=== PATIENT | female | born 1945 | race Caucasian/White ===

== ENCOUNTER 2017-06-17 21:12 | Emergency (ER) | payer MEDICARE ==
[~2017-06-17] VITALS: Ht 152.4 cm; Wt 66.8 kg
[~2017-06-17 21:12] MED LIST: ASPI325T17 PO; ESTR0.3T PO; Hydrocodone Bit/Acetaminophen PO; Ibuprofen PO; LEVO25TA4 PO; ONDA4TAB10 PO
[2017-06-17] MEDS ORDERED: OXYcodone/APAP 5/325MG TABLET ONE (21:46)
[2017-06-17] MEDS ORDERED: OXYcodone/APAP 5/325MG TABLET PO ONE (22:00)
[2017-06-17] MEDS ORDERED: OXYcodone IR 5MG TABLET PO ONE (22:00)
[2017-06-17 23:16] VITALS: BP 169/63
== END 2017-06-17 23:34 | disposition home or self-care (01) ==
LOC: ED 23:25
DX: M25.512 Pain in left shoulder (principal); G89.29 Other chronic pain; M41.9 Scoliosis, unspecified; Z87.891 Personal history of nicotine dependence
CPT/HCPCS: 99284

== ENCOUNTER 2018-05-07 19:31 | Inpatient (IN) | payer MEDICARE ==
[~2018-05-07] VITALS: Ht 152.4 cm; Wt 70.6 kg
--- NOTE | 2018-05-07 20:31 | NUR ---
PT. TO ROOM FROM LOBBY; IN BR FOR URINE SAMPLE.
[2018-05-07 20:40] LABS: BASOPHILS # (AUTO) 0.05 x10^3/uL (0-0.1); BASOPHILS % (AUTO) 1 % (0-1); EOSINOPHILS # (AUTO) 0.07 x10^3/uL (0-0.4); EOSINOPHILS % (AUTO) 1 % (1-7); LYMPHOCYTES # (AUTO) 1.67 x10^3/uL (1-3.4); LYMPHOCYTES % (AUTO) 17 % (22-44); MD NO; MEAN CORPUSCULAR HEMOGLOBIN 30.8 pg (27.0-34.8); MEAN CORPUSCULAR HGB CONC 33.7 g/dL (32.4-35.8); MEAN CORPUSCULAR VOLUME 91.3 fL (80-100); MEAN PLATELET VOLUME 6.8 fL (7.4-10.4); MONOCYTES # (AUTO) 0.52 x10^3/uL (0.2-0.8); MONOCYTES % (AUTO) 6 % (2-9); NEUTROPHILS # (AUTO) 7.32 x10^3/uL (1.8-6.8); NEUTROPHILS % (AUTO) 76 % (42-75); PLATELET COUNT 395 x10^3/uL (130-400); RED BLOOD COUNT 4.53 x10^6/uL (3.82-5.3); RED CELL DISTRIBUTION WIDTH 12.6 % (9.6-15.2)
--- NOTE | 2018-05-07 20:42 | NUR ---
URINE COLLECTED AND SENT TO LAB. MARIETTA REN TAKING REPORT AT BS TO ASSUME PT. CARE AT THIS TIME.
--- NOTE | 2018-05-07 20:46 | NUR ---
ct pending lab/creatine
[2018-05-07 20:49] LABS: ALANINE AMINOTRANSFERASE 25 U/L (12-78); ALBUMIN 4.4 g/dL (3.4-5.0); ANION GAP 8 mmol/L (5-15); CALCIUM 9.1 mg/dL (8.5-10.1); CHLORIDE 100 mmol/L (98-107); CREATININE 0.81 mg/dL (0.55-1.02)
[2018-05-07 20:52] LABS: MICROSCOPIC NOT IND
[2018-05-07 20:52] LABS: ALKALINE PHOSPHATASE 112 U/L (45-117); BILIRUBIN,TOTAL 0.3 mg/dL (0.2-1.0); TOTAL PROTEIN 7.9 g/dL (6.4-8.2)
[2018-05-07] MEDS ORDERED: LEVO125T5 PO (20:52)
[2018-05-07] MEDS ORDERED: FELO5TAB PO (20:52)
[2018-05-07] MEDS ORDERED: OXYC-302 PO (20:52)
[2018-05-07] MEDS ORDERED: DICY10CA3 PO (20:52)
[2018-05-07] MEDS ORDERED: ESCI10TA PO (20:52)
[2018-05-07] MEDS ORDERED: CALC-545 PO (20:52)
[2018-05-07] MEDS ORDERED: CHOL2000 PO (20:52)
[2018-05-07] MEDS ORDERED: PSEU30TA24 PO (20:52)
[2018-05-07] MEDS ORDERED: BUPR-173 PO (20:52)
[2018-05-07] MEDS ORDERED: TRAZ-137 PO (20:52)
[2018-05-07] MEDS ORDERED: LISI-170 PO (20:52)
[2018-05-07] MEDS ORDERED: OMEG-14 PO (20:52)
[2018-05-07 20:55] LABS: CULTURE INDICATED? NO
[2018-05-07] MEDS ORDERED: FAMOTIDINE 20 MG/2 ML IVP ONE (21:00)
[2018-05-07] MEDS ORDERED: HYDROmorphone 2 MG/ML, 1ML IVPush PRN (21:00)
[2018-05-07] MEDS ORDERED: ONDANSETRON 2MG/ML, 2ML IVPush ONE (21:00)
[2018-05-07] MEDS ORDERED: FAMOTIDINE 20 MG/2 ML ONE (21:14)
[2018-05-07] MEDS ORDERED: HYDROmorphone 1 MG/ML, 1ML AMP ONE ×2 (21:14→22:34)
[2018-05-07] MEDS ORDERED: ONDANSETRON 2MG/ML, 2ML ONE (21:15)
[2018-05-07] MEDS ORDERED: OMNIPAQUE 350 MG/ML, 100ML BOTTLE ONE (22:00)
[2018-05-07] MEDS ORDERED: HYDROmorphone 1 MG/ML, 1ML AMP IV ONE (22:30)
[2018-05-07] MEDS ORDERED: KETOROLAC 30 MG/1 ML IVPush ONE (22:30)
[2018-05-07] MEDS ORDERED: DICYCLOMINE 20 MG TABLET PO ONE (22:30)
[2018-05-07] MEDS ORDERED: DICYCLOMINE 20 MG TABLET ONE (23:04)
--- NOTE | 2018-05-07 23:07 | NUR ---
Steve robert in [facility] - 05/07/18 at 2307 by SEJAL Discharge instructions discussed with patient including when to return to emergency department, patient verbalizes understanding.
--- NOTE | 2018-05-07 23:13 | NUR ---
PT MEDICATED PER APR. POC DISCUSSED. PT AGREES TO BE ADMITTED. PT DENIES FURTHER NEEDS AT THIS TIME. CALL LIGHT ON LAP.
--- NOTE | 2018-05-07 23:58 | NUR ---
PT REQUESTING CRACKERS AND ICE CHIPS. CONSULTED WHOM STATES NPO UNTIL HOSPITALIST PLACES ORDERS. PT INFORMED. PT DENIES FURTHER NEEDS AT THIS TIME.
[2018-05-08] MEDS ORDERED: HYDROmorphone 1 MG/ML, 1ML AMP ONE (00:36)
--- NOTE | 2018-05-08 00:44 | NUR ---
PT MEDICATED FOR COMPLAINT OF INCREASING PAIN. AWAITING ADMIT BED. PT DENIES FURTHER NEEDS AT THIS TIME.
[2018-05-08] MEDS ORDERED: ONDANSETRON 2MG/ML, 2ML IVPush PRN (01:00)
[2018-05-08] MEDS ORDERED: OXYcodone/APAP 5/325MG TABLET PO PRN (01:00)
[2018-05-08] MEDS ORDERED: LACTATED RINGERS 1,000 ML IV SCH (01:00)
[2018-05-08] MEDS ORDERED: ENALAPRILAT 1.25 MG/ML, 2ML IVPush PRN (01:00)
[2018-05-08] MEDS ORDERED: KETOROLAC 30 MG/1 ML IV PRN (01:00)
[2018-05-08] MEDS ORDERED: HYDROmorphone 1 MG/ML, 1ML AMP IV ONE (01:00)
[2018-05-08] MEDS ORDERED: BISACODYL 10 MG SUPP PR PRN (01:00)
[2018-05-08 01:09] LABS: TROPONIN I < 0.015 ng/mL (0.000-0.045)
[2018-05-08 01:15] LABS: THYROID STIMULATING HORMONE 0.981 mIU/L (0.358-3.740)
[2018-05-08 01:23] VITALS: BP 119/60
[2018-05-08] MEDS ORDERED: HYDROmorphone 2 MG/ML, 1ML ONE (04:12)
[2018-05-08] MEDS: HYDROmorphone 2 MG/ML, 1ML IVPush PRN ×6 (04:17→22:18)
[2018-05-08] MEDS ORDERED: DIPHENHYDRAMINE 50 MG/ML, 1ML IVPush ONE (05:00)
[2018-05-08] MEDS: OMEPRAZOLE 20 MG CAPSULE.DR PO SCH ×2 (05:47→16:00)
[2018-05-08] MEDS: ENOXAPARIN 40 MG/0.4 ML SQ SCH (07:50)
[2018-05-08] MEDS: ONDANSETRON ODT 4 MG PO PRN (07:50)
[2018-05-08] MEDS: SENNA/DOCUSATE TABLET PO SCH (07:50)
[2018-05-08] MEDS: POLYETHYLENE GLYCOL 17 GM PACKET PO SCH ×2 (07:51→21:00)
[2018-05-08 07:55] VITALS: BP 132/68
[2018-05-08] MEDS: SODIUM CHLORIDE 0.45% 1,000 ML IV SCH ×2 (13:49→20:50)
[2018-05-08] MEDS: TAMSULOSIN 0.4 MG CAP.ER.24H PO SCH (13:49)
[2018-05-08 14:35] VITALS: BP 121/60
[2018-05-08] MEDS ORDERED: PINK LADY ENEMA 490 ML BOTTLE PR ONE (16:30)
[2018-05-08 19:31] VITALS: BP 120/55
[2018-05-09 01:06] VITALS: BP 143/62
[2018-05-09] MEDS: HYDROmorphone 2 MG/ML, 1ML IVPush PRN ×2 (01:27→04:36)
[2018-05-09] MEDS: SODIUM CHLORIDE 0.45% 1,000 ML IV SCH ×2 (04:20→11:48)
[2018-05-09 05:13] LABS: ANION GAP 6 mmol/L (5-15); BASOPHILS # (AUTO) 0.03 x10^3/uL (0-0.1); BASOPHILS % (AUTO) 0 % (0-1); CALCIUM 8.1 mg/dL (8.5-10.1); CHLORIDE 104 mmol/L (98-107); CHOLESTEROL, TOTAL 263 mg/dL (140-239); EOSINOPHILS # (AUTO) 0.11 x10^3/uL (0-0.4); EOSINOPHILS % (AUTO) 2 % (1-7); LYMPHOCYTES # (AUTO) 1.61 x10^3/uL (1-3.4); LYMPHOCYTES % (AUTO) 22 % (22-44); MD NO; MEAN CORPUSCULAR HEMOGLOBIN 31.6 pg (27.0-34.8); MEAN CORPUSCULAR HGB CONC 34.6 g/dL (32.4-35.8); MEAN CORPUSCULAR VOLUME 91.3 fL (80-100); MEAN PLATELET VOLUME 6.6 fL (7.4-10.4); MONOCYTES % (AUTO) 8 % (2-9); NEUTROPHILS # (AUTO) 5.01 x10^3/uL (1.8-6.8); NEUTROPHILS % (AUTO) 68 % (42-75); PLATELET COUNT 296 x10^3/uL (130-400); RED BLOOD COUNT 3.84 x10^6/uL (3.82-5.3); TRIGLYCERIDES 88 mg/dL (50-200); VLDL CHOLESTEROL 18 mg/dL (0-25)
[2018-05-09 05:15] LABS: CHOL/HDL RATIO 3.7; HDL CHOL % 27 % (28-40); HDL CHOLESTEROL (DIRECT) 71 mg/dL (40-60); LDL CHOLESTEROL,CALCULATED 174 mg/dL (54-169); LDL/HDL RATIO 2.5 (0.5-3.0)
[2018-05-09] MEDS: OMEPRAZOLE 20 MG CAPSULE.DR PO SCH (05:49)
[2018-05-09] MEDS: SENNA/DOCUSATE TABLET PO SCH (08:17)
[2018-05-09] MEDS: POLYETHYLENE GLYCOL 17 GM PACKET PO SCH (08:17)
[2018-05-09] MEDS: TAMSULOSIN 0.4 MG CAP.ER.24H PO SCH (08:18)
[2018-05-09] MEDS: ENOXAPARIN 40 MG/0.4 ML SQ SCH (08:18)
[2018-05-09] MEDS: OXYcodone/APAP 5/325MG TABLET PO PRN ×2 (10:21→14:15)
[2018-05-09] MEDS ORDERED: MAGNESIUM CITRATE 300ML ORAL SOL PO ONE (11:30)
[2018-05-09] MEDS ORDERED: PINK LADY ENEMA 490 ML BOTTLE PR ONE (12:00)
[2018-05-09] MEDS ORDERED: PINK LADY ENEMA 490 ML BOTTLE PR SCH (12:00)
[2018-05-09 12:55] VITALS: BP 132/55
[2018-05-09] MEDS: ONDANSETRON ODT 4 MG PO PRN (15:01)
== END 2018-05-09 18:29 | disposition left against medical advice (07) | DRG 694 ==
LOC: ED 22:40 → EDIP 05-08 00:37 → 3NE 05-08 01:19
PROVIDERS: ADMIT Family Medicine; ATTEND Family Medicine
DX: N13.30 Unspecified hydronephrosis (principal); E87.1 Hypo-osmolality and hyponatremia; E03.9 Hypothyroidism, unspecified; I10 Essential (primary) hypertension; K21.9 Gastro-esophageal reflux disease without esophagitis; K59.09 Other constipation; K76.89 Other specified diseases of liver; M41.9 Scoliosis, unspecified; M79.7 Fibromyalgia; F32.9 Major depressive disorder, single episode, unspecified; G89.29 Other chronic pain; M54.5 Low back pain; Z90.710 Acquired absence of both cervix and uterus; Z90.722 Acquired absence of ovaries, bilateral
CPT/HCPCS: 36415; 74018; 74177; 76770; 80048; 80053; 80061; 81003; 83605; 83690; 84443; 84484; 85025; 93005; 96374; 96375; 96376; 99285; G0378; J1170; J1650; J1885; J2405; Q0162; Q9967; J1200; J3490; J7120